=== PATIENT | female | born 1955 | race Caucasian/White ===

== ENCOUNTER 2021-07-10 07:35 | Observation (INO) ==
[2021-07-10] MEDS ORDERED: ALBUTEROL/IPRATROPIUM 3 ML NEB RESP TX STA (08:12)
[2021-07-10 08:40] LABS: Basophils % 0.2 % (0.0-0.8); Eosinophils % 0.1 % (0.00-10.9); Hematocrit 42.7 VOL% (35.7-47.0); Hemoglobin 13.7 GM/DL (12.0-16.0); Immature Granulocytes % 0.7 %; Immature Granulocytes Absolute 0.14 #; Lymphocytes # 0.7 10*3/uL (1.4-4.0); Lymphocytes % 3.4 % (21.3-54.2); Mean Corpuscular HGB Conc 32.1 GM/DL (32-36); Mean Corpuscular Volume 96.2 FL (87-102); Monocytes % 3.1 % (1.7-12.7); Neutrophils % 92.5 % (38.7-73.9); Platelet Count 214 T/CUMM (130-400); Red Blood Count 4.44 MC/CUMM (3.8-5.5); Red Cell Distribution Width 12.1 % (9.3-17.3); White Blood Count 19.5 T/CUMM (4-12)
[2021-07-10 09:07] LABS: Albumin 3.3 G/DL (3.4-5.0); Bilirubin,Total 0.8 MG/DL (0.20-1.00); Calcium 9.3 MG/DL (8.5-10.1); Osmolality,Calculated 283.3 MOS/KG (273-304); Total Protein 7.2 G/DL (6.4-8.2)
[2021-07-10 09:50] LABS: Lymphocytes 3 % (20-55); Platelet Estimate Normal; Segmented Neutrophils 97 % (50-85); Total Cells Counted 100
[2021-07-10] MEDS ORDERED: KETOROLAC 30 MG/1 ML VIAL IV STA (12:21)
[2021-07-10] MEDS ORDERED: LEVOFLOXACIN INJ 750 MG/150 ML PREMIX IV STA (12:21)
[2021-07-10] MEDS ORDERED: ACETAMINOPHEN 325 MG TABLET PO PRN (16:26)
[2021-07-10] MEDS ORDERED: ALBUTEROL/IPRATROPIUM 3 ML NEB RESP TX PRN (16:26)
[2021-07-10] MEDS ORDERED: ONDANSETRON 4 MG/2 ML VIAL IV PRN (16:26)
[2021-07-10] MEDS ORDERED: GLUCAGON 1 MG VIAL IM PRN (16:26)
[2021-07-10] MEDS ORDERED: LEVOFLOXACIN INJ 750 MG/150 ML PREMIX IV SCH (16:30)
[2021-07-10] MEDS ORDERED: ENOXAPARIN 40 MG/0.4 ML SYRINGE SUBCUT SCH (16:30)
[2021-07-10] MEDS ORDERED: methylPREDNISolone SOD SUC 40 MG/1 ML VIAL IV STA (16:31)
[2021-07-10] MEDS ORDERED: DEXTROSE 50% 25 GM/50 ML SYRINGE IV PRN (16:35)
[2021-07-10] MEDS ORDERED: methylPREDNISolone SOD SUC 125 MG/2 ML VIAL ONE (16:39)
[2021-07-10] MEDS: LACTATED RINGERS 1,000 ML IV SCH (17:53)
[2021-07-10] MEDS: predniSONE 20 MG TABLET PO SCH (17:53)
[2021-07-10] MEDS: PANTOPRAZOLE 40 MG TABLET PO SCH (17:53)
[2021-07-11] MEDS: predniSONE 20 MG TABLET PO SCH ×2 (00:55→08:22)
[2021-07-11 06:13] LABS: Basophils % 0.1 % (0.0-0.8); Hematocrit 35.7 VOL% (35.7-47.0); Hemoglobin 11.5 GM/DL (12.0-16.0); Lymphocytes # 0.8 10*3/uL (1.4-4.0); Mean Corpuscular HGB Conc 32.2 GM/DL (32-36); Mean Corpuscular Volume 95.7 FL (87-102); Mean Platelet Volume 10.2 FL (9.6-12.0); Monocytes % 3.7 % (1.7-12.7); Neutrophils % 91.2 % (38.7-73.9); Platelet Count 185 T/CUMM (130-400); Red Blood Count 3.73 MC/CUMM (3.8-5.5); Red Cell Distribution Width 12.1 % (9.3-17.3); White Blood Count 19.5 T/CUMM (4-12)
[2021-07-11] MEDS: LACTATED RINGERS 1,000 ML IV SCH (06:36)
[2021-07-11 06:37] LABS: Band Neutrophils 2 % (0-10); Eosinophils 1 % (0-10); Hypochromasia Slight; Lymphocytes 5 % (20-55); Microcytosis Slight; Platelet Estimate Adequate; Segmented Neutrophils 90 % (50-85); Total Cells Counted 100
[2021-07-11 06:43] LABS: Calcium 9.1 MG/DL (8.5-10.1); Osmolality,Calculated 286.3 MOS/KG (273-304)
[2021-07-11] MEDS: PANTOPRAZOLE 40 MG TABLET PO SCH (08:22)
[2021-07-11 12:25] VITALS: BP 112/57
[2021-07-11] MEDS ORDERED: LEVOFLOXACIN INJ 750 MG/150 ML PREMIX IV SCH (12:30)
== END 2021-07-11 14:57 | disposition home or self-care (01) ==
LOC: N.EDINP 07:35 → N.ED 07:35 → N.5E 17:02
PROVIDERS: ADMIT Internal Medicine; ATTEND Internal Medicine